=== PATIENT | female | born 1995 | race African-American/Black ===

== ENCOUNTER 2017-05-07 14:59 | Emergency (ER) | payer BC ==
[~2017-05-07] VITALS: Ht 165.1 cm; Wt 51.0 kg
[2017-05-07 15:06] VITALS: TEMP 36.4; Ht 165.1 cm; Wt 51.0 kg
[2017-05-07] MEDS ORDERED: SODIUM CHLORIDE 0.9% 1000ML 1,000 ML IV STA (16:06)
--- NOTE | 2017-05-07 16:11 | EMERGENCY ROOM VISIT NOTE ---
History First contact with patient: 15:10 Chief Complaint: DIZZY Stated Complaint: HALUCINATIONS,DIZZINESS,PREVIOUS FEVER,EARS RINING Nursing Triage Summary: Patient presents with c/o body aches, fever, dizziness Low back pain two weeks ago Placed on tamiflu and amoxil yesterday History of Present Illness The patient is a 21 year old female who presents to the Emergency Room via private vehicle accompanied by mother with complaints of "hallucinations, dizziness, previous fever, ears ringing". The mother and patient provide history. Much of the history is derived from the mother the patient so appears groggy. The mother states that about 2 weeks ago the patient was experiencing low back pain. She was doing well up until this past Sunday when the patient called her mother noted that she was tired and not feeling well. Sunday she dropped a fever and the temperature gonzalo from 100-101.8F orally. She was then admitted [facility] but because there was a long line she went to Dr. Bates is [facility] here in [place]. At that time she was started up on Tamiflu and given a prescription for amoxicillin in the event that it could be bacterial. The mother notes that the patient did not begin the medication until this morning. She took her first Tamiflu dose. Shortly thereafter the patient became almost unresponsive. She states that she was unable to speak, and seemed to be delirious and hallucinating. She that this could perhaps be a reaction to the Tamiflu and call [facility]. They recommended she go to the emergency department. She also had Mucinex for head congestion. At this time the patient is slow to respond to questioning and defers to her mother for much of the history. In regard to past medical history there is no pertinent positives. Review of Systems A complete 10-point Review of Systems was discussed with the patient, with pertinent positives and negatives listed in the History of Present Illness. All remaining Review of Systems questions can be considered negative unless otherwise specified (much of which was derived from the mother however patient was able to help) Past Medical/Surgical History No pertinent Family History No pertinent Social History Smoking Status: Never Smoker Social History: Patient lives locally. She is a student locally. Current/Historical Medications Scheduled Oseltamivir Phosphate (Tamiflu), 75 MG PO BID Miscellaneous Medications Estradiol Cypionate (Depo-Estradiol) Allergies Coded Allergies: Sulfa Antibiotics (Unverified Allergy, Unknown, ., 05/07/17) Physical Exam Vital Signs Date Time Temp Pulse Resp B/P (MAP) Pulse Ox O2 Delivery O2 Flow Rate FiO2 05/07/17 16:38 70 18 135/86 99 Room Air 05/07/17 15:06 36.4 72 16 135/86 98 Room Air Physical Exam VITAL SIGNS - Vital signs and nursing notes were reviewed. Vital signs are stable. She is afebrile. GENERAL -21-year-old female appearing her stated age who is in no acute distress. Communicates well with provider and answers questions appropriately. SKIN - Without rashes. No meningeal or petechial rash. HEAD - NC/AT. EYES - PERRL with EOMI bilaterally. Sclera anicteric. EARS - No deformities of external structures noted on gross examination bilaterally. External auditory canals without discharge or otorrhea. Tympanic membranes pearly wyatt without retraction or bulging. No fluid or purulent material visualized behind the TM. Handle of malleus, umbo, cone of light, pars tensa/flaccid all easily visualized. NOSE - Midline and without cyanosis. No epistaxis or purulent drainage noted. MOUTH/OROPHARYNX - Without perioral cyanosis. Buccal mucosa pink and moist and without leukoplakia. Tongue midline with equal elevation of palate bilaterally. No tonsillar hypertrophy, erythema, or exudates noted. Fair dentition noted. NECK - Neck with FROM. Supple to palpation. No lymphadenopathy noted. No nuchal rigidity. Patient is able to move her head in all directions without signs of meningitis or encephalitis. No photophobia appreciated. LUNGS - Chest wall symmetric without accessory muscle use, intercostals retractions, or central cyanosis. Normal vesicular breath sounds CTA B/L. No wheezes, rales, or rhonchi appreciated. CARDIAC - RRR with S1/S2. No murmur, rubs, or gallops appreciated. ABDOMEN - Abdominal contour normal without pulsations or visible masses. BS normoactive all four quadrants. No tenderness, palpable masses, hepatosplenomegaly, or ascites noted. EXTREMITIES - No clubbing or peripheral cyanosis. No pretibial edema present. + 5/5 strength noted in UE/LE bilaterally. NEUROLOGIC - Cranial nerves II through XII grossly intact. Sensory intact to light touch throughout. PSYCH - A&Ox3 and cooperates fully with examiner. Pt is very pleasant however slow to respond to questions. Medical Decision & Procedures Laboratory Results 3/19/18 16:00 Red Blood Count 4.50, Mean Corpuscular Volume 79.3, Mean Corpuscular Hemoglobin 29.6, Mean Corpuscular Hemoglobin Concent 37.3, Mean Platelet Volume 10.7, Neutrophils (%) (Auto) 61.1, Lymphocytes (%) (Auto) 30.6, Monocytes (%) (Auto) 7.0, Eosinophils (%) (Auto) 0.8, Basophils (%) (Auto) 0.3, Neutrophils # (Auto) 3.77, Lymphocytes # (Auto) 1.89, Monocytes # (Auto) 0.43, Eosinophils # (Auto) 0.05, Basophils # (Auto) 0.02 05/07/17 16:00 Test 05/07/17 15:21 05/07/17 16:00 05/07/17 16:02 05/07/17 16:07 White Blood Count 6.17 K/uL (4.8-10.8) Red Blood Count 4.50 M/uL (4.2-5.4) Hemoglobin 13.3 g/dL (12.0-16.0) Hematocrit 35.7 % (37-47) Mean Corpuscular Volume 79.3 fL (80-100) Mean Corpuscular Hemoglobin 29.6 pg (25-34) Mean Corpuscular Hemoglobin Concent 37.3 g/dl (32-36) Platelet Count 130 K/uL (130-400) Mean Platelet Volume 10.7 fL (7.4-10.4) Neutrophils (%) (Auto) 61.1 % Lymphocytes (%) (Auto) 30.6 % Monocytes (%) (Auto) 7.0 % Eosinophils (%) (Auto) 0.8 % Basophils (%) (Auto) 0.3 % Neutrophils # (Auto) 3.77 K/uL (1.4-6.5) Lymphocytes # (Auto) 1.89 K/uL (1.2-3.4) Monocytes # (Auto) 0.43 K/uL (0.11-0.59) Eosinophils # (Auto) 0.05 K/uL (0-0.5) Basophils # (Auto) 0.02 K/uL (0-0.2) RDW Standard Deviation 39.4 fL (36.4-46.3) RDW Coefficient of Variation 13.8 % (11.5-14.5) Immature Granulocyte % (Auto) 0.2 % Immature Granulocyte # (Auto) 0.01 K/uL (0.00-0.02) Erythrocyte Sedimentation Rate 7 mm/hr (0-21) Anion Gap 7.0 mmol/L (3-11) Est Creatinine Clear Calc Drug Dose 75.3 ml/min Estimated GFR () 98.7 Estimated GFR (Non- 85.1 BUN/Creatinine Ratio 10.2 (10-20) Lactic Acid Level 0.8 mmol/L (0.4-2.0) Calcium Level 8.6 mg/dl (8.5-10.1) Magnesium Level 2.0 mg/dl (1.8-2.4) Total Bilirubin 0.6 mg/dl (0.2-1) Aspartate Amino Transf (AST/SGOT) 11 U/L (15-37) Alanine Aminotransferase (ALT/SGPT) 15 U/L (12-78) Alkaline Phosphatase 70 U/L (45-117) Total Creatine Kinase 56 U/L (26-192) Creatine Kinase MB < 0.5 ng/ml (0.5-3.6) Creatine Kinase MB Ratio (0-3.0) C-Reactive Protein 2.04 mg/dl (0-0.29) Total Protein 7.6 gm/dl (6.4-8.2) Albumin 4.1 gm/dl (3.4-5.0) Globulin 3.5 gm/dl (2.5-4.0) Albumin/Globulin Ratio 1.2 (0.9-2) Thyroid Stimulating Hormone (TSH) 0.715 uIu/ml (0.300-4.500) Influenza Type A Antigen POS for Influ A (NEG) Influenza Type B Antigen Neg for Influ B (NEG) Urine Color YELLOW Urine Appearance CLEAR (CLEAR) Urine pH 7.0 (4.5-7.5) Urine Specific Parlier 1.006 (1.000-1.030) Urine Protein NEG (NEG) Urine Glucose (UA) NEG (NEG) Urine Ketones NEG (NEG) Urine Occult Blood NEG (NEG) Urine Nitrite NEG (NEG) Urine Bilirubin NEG (NEG) Urine Urobilinogen NEG (NEG) Urine Leukocyte Esterase NEG (NEG) Urine Opiates Screen NEG (NEG) Urine Methadone, Qualitative NEG (NEG) Urine Barbiturates NEG (NEG) Urine Phencyclidine (PCP) Level NEG (NEG) Ur Amphetamine/Methamphetamine NEG (NEG) MDMA (Ecstasy) Screen NEG (NEG) Urine Benzodiazepines Screen NEG (NEG) Urine Cocaine Metabolite NEG (NEG) Urine Marijuana (THC) POS (NEG) Medications Administered Medications (Trade) Dose Ordered Sig/[place]a Route Start Time Stop Time Status Last Admin Dose Admin Sodium Chloride 1,000 ml @ 999 mls/hr Q1H1M STAT IV 05/07/17 16:06 05/07/17 17:06 DC 05/07/17 16:06 999 MLS/HR Medical Decision Patient was seen and evaluated as above in room A11. She presents to us today with her mother with essentially a change in mental status following ingestion of Tamiflu. When she came here she was quite groggy on exam. Review was performed of nursing notes and vital signs. After obtaining a thorough history and physical examination the above work up was performed. Influenza positive on testing here. She has been reevaluated numerous times throughout her stay and has been doing much better. She is now completely alert and oriented. She notes that she still feels a little hazy however is acting appropriate. I favor this is likely a medication reaction given that she was feeling well even with the flu diagnosis earlier today and then shortly after taking Tamiflu noticed this change. I discussed that a lumbar puncture could be considered, however she respectfully declined this. I favor this less likely to be meningitis or encephalitis given that she has had great improvement throughout her stay here with just time. This is leading to favoring the medication Tamiflu being the cause of her change. She is to discontinue taking this. On labs, there is no concerning leukocytosis or significant anemia. She was educated upon her slight anemia with hematocrit 35.7 and MCV being low. ESR normal. Patient metabolic panel reveals no concerning kidney or liver failure. Lactic acid normal. Blood cultures pending. These were ordered secondary to the patient presentation. CRP slightly up at 2.0 for which I favor likely be secondary to the influenza diagnosis. TSH normal. Urine negative. Urine test negative. Again influenza A positive. Vital signs are stable. Case was discussed with the attending physician. Mother and patient were thoroughly educated upon the importance of close watching over the next 48 hours to ensure no worsening. There is no evidence of nuchal rigidity, meningitis or encephalitis on exam. They are to return with any worsening of symptoms. The patient was educated upon management, had questions answered prior to discharge, and was discharged home in good condition. Case was discussed with the attending physician. In the evaluation and treatment of this patient, the following differential diagnoses were considered: Migraine Headache, Intracranial Hemorrhage, Subdural Hematoma, Subarachnoid Hemorrhage, Cerebral Aneurysm, Temporal/Giant Cell Arteritis, Tension Headache, Meningitis, Encephalitis, or Hydrocephalus, sepsis , medication reaction, among others. Impression Primary Impression: Medication reaction Additional Impression: Influenza Departure Information Dispostion Home / Self-Care Condition GOOD Referrals No Doctor, Assigned (PCP) Patient Instructions My [facility] Additional Instructions You are seen in the emergency department for change in mental status, dizziness , fever and ears ringing. At this time I suspect that you likely experienced a reaction to the Tamiflu. Please not take anymore of this. Please rest and stay well-hydrated. Please drink plenty of fluids. Please call your family doctor to schedule follow-up. Please return with any new/concerning symptoms. Thank you for your time. Problem Qualifiers
[2017-05-07 16:15] LABS: BASO % 0.3 %; BASO ABS # 0.02 K/uL (0-0.2); EOS % 0.8 %; EOS ABS # 0.05 K/uL (0-0.5); HEMATOCRIT 35.7 % (37-47); HEMOGLOBIN 13.3 g/dL (12.0-16.0); IG# 0.01 K/uL (0.00-0.02); LYMPH % 30.6 %; LYMPH ABS # 1.89 K/uL (1.2-3.4); MEAN CELL VOLUME 79.3 fL (80-100); MEAN CORPUSCULAR HEMOGLOBIN 29.6 pg (25-34); MEAN CORPUSCULAR HGB CONC 37.3 g/dl (32-36); MEAN PLATELET VOLUME 10.7 fL (7.4-10.4); MONO ABS # 0.43 K/uL (0.11-0.59); NEUT % 61.1 %; NEUT ABS # 3.77 K/uL (1.4-6.5); PLATELET COUNT 130 K/uL (130-400); RED CELL DISTRIBUTION WIDTH CV 13.8 % (11.5-14.5); RED CELL DISTRIBUTION WIDTH SD 39.4 fL (36.4-46.3); WHITE BLOOD COUNT 6.17 K/uL (4.8-10.8)
[2017-05-07 16:33] LABS: ALBUMIN 4.1 gm/dl (3.4-5.0); ALT/SGPT 15 U/L (12-78); AST/SGOT 11 U/L (15-37); BLOOD UREA NITROGEN 10 mg/dl (7-18); CALCIUM 8.6 mg/dl (8.5-10.1); CARBON DIOXIDE 24 mmol/L (21-32); CREATININE 0.96 mg/dl (0.60-1.20); GLUCOSE 81 mg/dl (70-99); POTASSIUM 3.9 mmol/L (3.5-5.1); SODIUM 137 mmol/L (136-145)
[2017-05-07] MEDS ORDERED: [UNRECOGNIZED DRUG - CODE] (16:39)
[2017-05-07] MEDS ORDERED: OSEL75CA23 PO (16:39)
[2017-05-07 16:41] LABS: INFLUENZA B ANTIGEN Neg for Influ B (NEG)
[2017-05-07 16:42] LABS: ALKALINE PHOSPHATASE 70 U/L (45-117); CKMB < 0.5 ng/ml (0.5-3.6); TOTAL PROTEIN 7.6 gm/dl (6.4-8.2)
[2017-05-07 18:17] VITALS: BP 140/88; PULSE 84; O2SAT 99
== END 2017-05-07 18:19 | disposition home or self-care (01) ==
LOC: C.EDB 15:02 → C.EDA 18:19
DX: R41.82 Altered mental status, unspecified (principal); R42 Dizziness and giddiness; H93.13 Tinnitus, bilateral; T37.5X5A Adverse effect of antiviral drugs, initial encounter; J11.1 Influenza due to unidentified influenza virus with other respiratory manifestations